=== PATIENT | male | born 1945 | race Caucasian/White ===

== ENCOUNTER 2020-02-04 09:23 | Emergency (ER) | payer BC, SELFPAY ==
[2020-02-04 09:51] VITALS: BP 146/76; PULSE 70; RESP 20; TEMP 36.5; O2SAT 98; BMI 22.6
[2020-02-04 10:08] VITALS: BP 146/76; PULSE 70; RESP 20; TEMP 36.5; O2SAT 98
--- NOTE | 2020-02-04 10:08 | HMH.EDUTC ---
[facility] [place] Clinical Impression: Shingles Qualifiers: Herpes zoster complications: without complications Qualified Code(s): B02.9 - Zoster without complications Disposition: Home, Self-Care Condition on Discharge: Good Instructions: DI for Shingles Additional Instructions: follow up with pcp on thursday if symptoms worsen or do not improve return of be seen in ed meds as ordered Prescriptions: Acyclovir [Acyclovir 800mg tab] 800 mg PO 5XDAY 7 Days #35 tab Transmission Status: Pending to [id number] predniSONE [Prednisone 20mg Tab] 20 mg PO BID #10 tab Transmission Status: Pending to [id number] Referrals: Jeff Cifuentes [Primary Care Provider] - Time of Disposition: 10:23 Medical Decision Making - Jay Inquiry Pt receiving controlled substance: No Vital Signs: 02/04/20 09:51 Temperature 97.7 F Temperature Source Oral Pulse Rate [Left Brachial] 70 Respiratory Rate 20 Blood Pressure [Left Arm] 146/76 H Blood Pressure Mean [Left Arm] 99 Blood Pressure Source [Left Arm] Automatic Cuff Blood Pressure Position [Left Arm] Sitting 02 Sat by Pulse Oximetry 98 Oxygen Delivery Method Room Air [facility] [place] H[place] - General Chief complaint: Urgent Treatment Center Stated complaint: lower back pain Time Seen by Provider: 02/04/20 10:08 Mode of Arrival: Ambulatory Source of Information: Patient Limitations: No Limitations Description of Symptoms (Recalled from Triage Doc. by RN): PATIENT C/O RASH TO LOWER BACK SINCE THURSDAY; STATES RASH IS ITCHY AND HE FEELS PRESSURE IN AREA HEENT Symptoms (Recalled from RN notes): No Resp Symptoms (Recalled from RN notes): No Skin Symptoms (Recalled from RN notes): Yes MS Symptoms (Recalled from RN notes): No Functional Status (Recalled from RN notes): WNL - History of Present Illness Provider Complaint: 74 yr old male presents for rash to left lower back. Pt states pain started last thursday and on the rash started. Pt states rash merrill and is painful to touch. - Related Data Home Medications Medication Instructions Recorded Confirmed Losartan/Hydrochlorothiazide 1 each PO DAILY 02/04/20 02/04/20 [Losartan-Hctz 50-12.5 mg Tab] Tamsulosin HCl 0.4 mg PO DAILY 02/04/20 02/04/20 Previous Rx's Medication Instructions Recorded Acyclovir [Acyclovir 800mg tab] 800 mg PO 5XDAY 7 Days #35 tab 02/04/20 predniSONE [Prednisone 20mg 20 mg PO BID #10 tab 02/04/20 Tab] Allergies Allergy/AdvReac Type Severity Reaction Status Date / Time No Known Allergies Allergy Verified 02/04/20 10:01 - Worker's Comp Is this a Worker's Comp case?: No [facility] History - Hepatitis A Screen Drug use history?: No High risk sexual behaviors?: No History of sexually transmitted infection?: No Currently employed?: No Childcare worker?: No Do you have indoor plumbing?: Yes Do you have electricity?: Yes Attestation statement:: This patient has been screened for Hepatitis A risk factors. I have reviewed the patient's past medical history: Yes - Social History Alcohol Intake: never Occupational Status: other ROS Obtained: Yes Systems reviewed as appropriate & no additional complaints - Constitutional Constitutional: Reports system reviewed and no additional complaints, except as docu, Denies fever(s) - Eyes Eyes: Reports system reviewed and no additional complaints, except as docu, Denies dry eyes - ENT Ears, Nose, Mouth, and Throat: Reports system reviewed and no additional complaints, except as docu, Denies sore throat - Cardiovascular Cardiovascular: Reports system reviewed and no additional complaints, except as docu, Denies chest pain - Respiratory Respiratory: Yes system reviewed and no additional complaints, except as docu, No dyspnea - Gastrointestinal Gastrointestingal: Reports: system reviewed and no additional complaints, except as docu. Denies: nausea, vomiting - Genitourinary Male Genitourinary: Reports system reviewed
== END 2020-02-04 10:30 | disposition home or self-care (01) ==
PROVIDERS: Emergency Provider Nurse Practitioner Family; PCP Family Medicine
DX: B02.9 Zoster without complications (principal); I10 Essential (primary) hypertension
CPT/HCPCS: 99201

== ENCOUNTER 2024-04-26 15:08 | Emergency (ER) | payer BC, SELFPAY ==
[2024-04-26 15:50] VITALS: BP 143/71; PULSE 65; RESP 18; TEMP 36.8; O2SAT 97; BMI 22.8
--- NOTE | 2024-04-26 16:02 | EXP.UTC ---
Discharge Plan Prescriptions Prescriptions: No Action tamsulosin 0.4 MG capsule 0.4 mg PO DAILY losartan-hydrochlorothiazide 1 EACH tablet 1 each PO DAILY prednisone 20 MG tablet 20 mg PO BID Qty: 10 0RF acyclovir 800 MG tablet 800 mg PO 5XDAY 7 Days Qty: 35 0RF Referrals Follow up/Referrals: Jeff Cifuentes [Primary Care Provider] - See instructions Activity Restrictions/Add. Instructions Additional Instructions/Restrictions: Keep a blood pressure diary for the next 3 days as discussed, take your blood pressure in the morning and evening and record it for your Family Doctor Make appoitment with your Family Doctor to discuss your medication Straight to ER if any life threatening symptoms Clinical Impressions Clinical Impression: Blood pressure check Instructions Patient Instructions: DI for High Blood Pressure, High Blood Pressure Print Language Print Language: [place] Discharge ED Provider: Gypsy Aguayo [facility] [place] General Stated complaint: Blood pressure check Mode of Arrival: Ambulatory Source of Information: Patient Limitations: No Limitations Time Seen by Provider: 04/26/24 16:02 Description of Symptoms (Recalled from Triage Doc. by RN): PATIENT STATES HIS BLOOD PRESSURE WAS HIGH AT WORK TODAY AND WANTS IT CHECKED HERE HEENT Symptoms (Recalled from RN notes): No Resp Symptoms (Recalled from RN notes): No Skin Symptoms (Recalled from RN notes): No MS Symptoms (Recalled from RN notes): No Functional Status (Recalled from RN notes): WNL History of Present Illness Provider Complaint: Patient states that his blood pressure was elevated at work States that he wanted to come in and get it checked and ask a couple questions about his medication and he was unable to get into his PCP Related Data Home Medications ?Medication ?Instructions ?Recorded ?Confirmed losartan 50 mg-hydrochlorothiazide 1 each PO DAILY Hypertension 02/04/20 02/04/20 12.5 mg tablet tamsulosin 0.4 mg capsule 0.4 mg PO DAILY PROSTATE 02/04/20 02/04/20 Previous Rx's ?Medication ?Instructions ?Recorded acyclovir 800 mg tablet 800 mg PO 5XDAY 7 days #35 tabs 02/04/20 prednisone 20 mg tablet 20 mg PO BID #10 tabs 02/04/20 Allergies Allergy/AdvReac Type Severity Reaction Status Date / Time No Known Allergies Allergy Verified 02/04/20 10:01 Worker's Comp Is this a Worker's Comp case?: No [facility] Disclaimer: The information contained in this section may have been updated after the patient was seen, as this information can be updated by other users. Social History Smoking Status: Unknown if ever smoked alcohol intake: never current occupational status: other Travel in the last 8 weeks: None ROS Obtained: Yes All systems reviewed & no additional complaints except as documented and Yes Systems reviewed as appropriate & no additional complaints except as documented Constitutional Constitutional: Reports system reviewed and no additional complaints, except as documented, Reports as per HPI and Denies headache(s) ENT Ears, Nose, Mouth, and Throat: Reports system reviewed and no additional complaints, except as documented, Reports as per HPI and Denies headache(s) Cardiovascular Cardiovascular: Reports system reviewed and no additional complaints, except as documented, Reports as per HPI and Denies chest pain Respiratory Respiratory: Reports system reviewed and no additional complaints, except as documented, Reports as per HPI and Denies shortness of breath Gastrointestinal Gastrointestingal: Reports system reviewed and no additional complaints, except as documented and as per HPI Genitourinary Male Genitourinary: Reports system reviewed and no additional complaints, except as documented and Reports as per HPI Musculoskeletal Musculoskeletal: Reports system reviewed and no additional complaints, except as documented and Reports as per HPI Integumentary/Breasts Skin/Breast: Reports system reviewed and no additional complaints, except as documented and Reports as per HPI Neurologic Neurologic: Reports system reviewed and no additional complaints, except as documented, Reports as per HPI and Denies headache(s) Endocrine Endocrine: Reports system reviewed and no additional complaints, except as documented and Reports as per HPI Allergic/Immunologic Comments: BLood pressure elevated at work Physical Exam General General appearance: alert and in no apparent distress ENT ENT exam: Present normal exam, normal oropharynx, mucous membranes moist and TM's normal bilaterally Chest Chest inspection: Present normal inspection and symmetric chest wall rise Respiratory Respiratory exam: Present normal lung sounds bilaterally; Absent respiratory distress or wheezes Cardiovascular Cardiovascular exam: Present regular rate, normal rhythm and normal heart sounds Neurological Exam Neurological exam: Present alert, oriented X3 and normal gait Medical Decision Making Medical Records Screening: Per USPSTF and CDC recommendations, given the prevalence of disease in our region, it is our hospital?s policy to screen for HIV and viral Hepatitis for all patients aged 18 and over and those with ongoing risk factors. Jay Inquiry Pt receiving controlled substance: No Jay was queried for this patient: No Vital Signs: 04/26/24 15:50 Temperature 98.3 F Temperature Source Oral Pulse Rate [Left Brachial] 65 Respiratory Rate 18 Blood Pressure [Left Arm] 143/71 H Blood Pressure Mean [Left Arm] 95 Blood Pressure Source [Left Arm] Automatic Cuff Blood Pressure Position [Left Arm] Sitting 02 Sat by Pulse Oximetry 97 Oxygen Delivery Method Room Air
[2024-04-26 16:13] VITALS: BP 143/71; PULSE 65; RESP 18; TEMP 36.8; O2SAT 97
== END 2024-04-26 16:14 | disposition home or self-care (01) ==
PROVIDERS: Emergency Provider Nurse Practitioner; PCP Family Medicine
DX: Z01.30 Encounter for examination of blood pressure without abnormal findings (principal); R03.0 Elevated blood-pressure reading, without diagnosis of hypertension
CPT/HCPCS: 99211; G0380